=== PATIENT | female | born 1935 | race Caucasian/White ===

== ENCOUNTER 2018-06-12 05:31 | Inpatient (IN) ==
[2018-06-07 13:33] LABS: Apearance,Urine CLEAR (Clear); Bilirubin,Urine Negative (Negative); Blood, Urine Negative (Negative); Glucose,Urine (UA) Negative (Negative); Ketones,Urine Negative (Negative); Nitrite,Urine Negative (Negative); Protein,Urine Negative; RBC,Urine <1 /HPF (0-4); Squamous Epithelial Cell,Urine Occasional /HPF (0-10); Urine Color Straw (Yellow); Urine Specific Gravity 1.008 (1.001-1.035); Urine Urobilinogen < 2.0 EU/DL (0.2-1.0); WBC,Urine 3 /HPF (0-6)
[2018-06-07 13:38] LABS: INR 0.9; PT Patient Result 9.8 SECS; Partial Thromboplastin Time 25.4 SECS (0-40)
[2018-06-12] MEDS ORDERED: VANCOMYCIN INJ 1,000 MG in SODIUM CHLORIDE 0.9% 250 ML IV ONE (06:00)
[2018-06-12] MEDS ORDERED: ceFAZolin 1,000 MG in SYRINGE 1 EACH IV ONE (06:00)
[2018-06-12 07:26] LABS: Basophils % 0.7 % (0.0-0.8); Eosinophils # 0.1 10*3/uL (0.0-0.87); Eosinophils % 0.9 % (0.00-10.9); Hematocrit 37.3 VOL% (35.7-47.0); Hemoglobin 12.2 GM/DL (12.0-16.0); Immature Granulocytes % 0.2 %; Immature Granulocytes Absolute 0.01 #; Lymphocytes # 1.3 10*3/uL (1.4-4.0); Lymphocytes % 21.6 % (21.3-54.2); Mean Corpuscular HGB Conc 32.7 GM/DL (32-36); Mean Corpuscular Hemoglobin 29 PG (27-34); Mean Corpuscular Volume 89.9 FL (87-102); Mean Platelet Volume 11.5 FL (9.6-12.0); Monocytes # 0.7 10*3/uL (0.11-0.8); Monocytes % 11.2 % (1.7-12.7); Neutrophils # 3.9 10*3/uL (1.4-7.4); Neutrophils % 65.4 % (38.7-73.9); Platelet Count 225 T/CUMM (130-400); Red Blood Count 4.15 MC/CUMM (3.8-5.5); Red Cell Distribution Width 13.9 % (9.3-17.3); White Blood Count 5.9 T/CUMM (4-12)
[2018-06-12 07:44] LABS: Albumin 3.4 G/DL (3.4-5.0); Bilirubin,Total 0.4 MG/DL (0.2-1.0); Calcium 9.3 MG/DL (8.5-10.1); Osmolality,Calculated 279.7 MOS/KG (273-304); Total Protein 7.1 G/DL (6.4-8.3)
[2018-06-12] MEDS ORDERED: FAMOTIDINE 20 MG TABLET PO ONE (07:56)
[2018-06-12] MEDS ORDERED: GABAPENTIN 400 MG CAPSULE PO ONE (07:56)
[2018-06-12] MEDS ORDERED: DIAZEPAM 5 MG TABLET PO ONE (07:56)
[2018-06-12] MEDS ORDERED: DIAZEPAM 5 MG TABLET ONE (08:00)
[2018-06-12] MEDS ORDERED: LACTATED RINGERS 1,000 ML IV SCH (08:00)
[2018-06-12] MEDS ORDERED: GABAPENTIN 400 MG CAPSULE ONE (08:00)
[2018-06-12] MEDS ORDERED: FAMOTIDINE 20 MG TABLET ONE (08:01)
[2018-06-12] MEDS ORDERED: VANCOMYCIN 1,000 MG VIAL ONE (08:02)
[2018-06-12] MEDS ORDERED: ceFAZolin 1,000 MG VIAL ONE (08:02)
[2018-06-12] MEDS ORDERED: DEXTROSE 50% 25 GM/50 ML VIAL IV PRN (11:10)
[2018-06-12] MEDS ORDERED: GLUCAGON 1 MG VIAL IM PRN (11:10)
[2018-06-12] MEDS ORDERED: diphenhydrAMINE CAP 25 MG CAPSULE PO PRN (11:11)
[2018-06-12] MEDS ORDERED: MORPHINE 4 MG/1 ML VIAL IV PRN ×2 (11:11)
[2018-06-12] MEDS ORDERED: MAGNESIUM HYDROXIDE SUSP 30 ML UDCUP PO PRN (11:11)
[2018-06-12] MEDS ORDERED: ONDANSETRON 4 MG/2 ML VIAL IV PRN (11:11)
[2018-06-12] MEDS ORDERED: oxyCODONE IR 5 MG TABLET PO PRN ×2 (11:11)
[2018-06-12] MEDS ORDERED: TRANEXAMIC ACID 1,000 MG/10 ML VIAL ONE (11:40)
[2018-06-12] MEDS ORDERED: BACITRACIN OINT 0.9 GM PACK TOP ONE (11:46)
[2018-06-12] MEDS ORDERED: ROPIVACAINE 0.5% 30 ML VIAL ONE (12:38)
[2018-06-12] MEDS ORDERED: ACETAMINOPHEN 1,000 MG/100 ML VIAL IV ONE (13:00)
[2018-06-12] MEDS ORDERED: ONDANSETRON 4 MG/2 ML VIAL ONE (13:00)
[2018-06-12] MEDS ORDERED: ePHEDrine 50 MG/ML AMP ONE (13:00)
[2018-06-12] MEDS ORDERED: PROPOFOL 200 MG/20 ML VIAL IV ONE (13:00)
[2018-06-12] MEDS ORDERED: KETOROLAC 30 MG/1 ML VIAL ONE (13:00)
[2018-06-12] MEDS ORDERED: SODIUM CHLORIDE 0.9% 100 ML IV ONE (13:01)
[2018-06-12] MEDS ORDERED: PHENYLEPHRINE 1 MG/10 ML SYRINGE IV ONE (13:01)
[2018-06-12] MEDS ORDERED: SODIUM CHLORIDE 0.9% 250 ML IV ONE (13:01)
[2018-06-12] MEDS: INSULIN LISPRO 100 UNIT/ML SUBCUT SCH ×3 (14:56→20:48)
[2018-06-12] MEDS: KETOROLAC 15 MG/1 ML VIAL IV SCH ×2 (15:50→22:45)
[2018-06-12] MEDS: LACTATED RINGERS 1,000 ML IV SCH ×2 (15:50→21:31)
[2018-06-12] MEDS: ACETAMINOPHEN 500 MG TABLET PO SCH ×2 (15:50→20:47)
[2018-06-12] MEDS: ceFAZolin 1,000 MG in SYRINGE 1 EACH IV SCH (20:40)
[2018-06-12] MEDS: DOCUSATE SODIUM 100 MG CAPSULE PO SCH (20:44)
[2018-06-12] MEDS: OXYBUTYNIN 5 MG TABLET PO SCH (20:45)
[2018-06-12] MEDS: diphenhydrAMINE CAP 25 MG CAPSULE PO SCH (20:46)
[2018-06-12] MEDS: ESCITALOPRAM 10 MG TABLET PO SCH (20:46)
[2018-06-12] MEDS: MELATONIN 3 MG TABLET PO SCH (20:47)
[2018-06-12] MEDS: ATORVASTATIN 40 MG TABLET PO SCH (20:47)
[2018-06-12] MEDS: CARVEDILOL 3.125 MG TABLET PO SCH (20:48)
[2018-06-12] MEDS: metFORMIN 500 MG TABLET PO SCH (20:48)
[2018-06-12] MEDS ORDERED: CALCIUM PO SCH (21:00)
[2018-06-12] MEDS ORDERED: SOY PO SCH (21:00)
[2018-06-12] MEDS ORDERED: MELATONIN PO SCH (21:00)
[2018-06-12] MEDS ORDERED: [UNRECOGNIZED DRUG - OTHER] PO SCH (21:00)
[2018-06-12] MEDS ORDERED: ATORVASTATIN 10 MG TABLET PO SCH (21:00)
[2018-06-13] MEDS: ACETAMINOPHEN 500 MG TABLET PO SCH ×2 (03:47→09:47)
[2018-06-13] MEDS: ceFAZolin 1,000 MG in SYRINGE 1 EACH IV SCH (03:48)
[2018-06-13] MEDS: KETOROLAC 15 MG/1 ML VIAL IV SCH ×2 (03:51→09:48)
[2018-06-13 05:23] LABS: Basophils % 0.6 % (0.0-0.8); Eosinophils # 0.1 10*3/uL (0.0-0.87); Eosinophils % 1.6 % (0.00-10.9); Hematocrit 31.1 VOL% (35.7-47.0); Immature Granulocytes % 0.2 %; Immature Granulocytes Absolute 0.01 #; Lymphocytes % 21.1 % (21.3-54.2); Mean Corpuscular HGB Conc 32.5 GM/DL (32-36); Mean Corpuscular Hemoglobin 29 PG (27-34); Mean Corpuscular Volume 89.9 FL (87-102); Mean Platelet Volume 12.2 FL (9.6-12.0); Monocytes # 0.6 10*3/uL (0.11-0.8); Monocytes % 12.2 % (1.7-12.7); Neutrophils # 3.2 10*3/uL (1.4-7.4); Neutrophils % 64.3 % (38.7-73.9); Platelet Count 192 T/CUMM (130-400); Red Blood Count 3.46 MC/CUMM (3.8-5.5); Red Cell Distribution Width 13.9 % (9.3-17.3); White Blood Count 4.9 T/CUMM (4-12)
[2018-06-13 05:39] LABS: Calcium 8.5 MG/DL (8.5-10.1); Osmolality,Calculated 275.8 MOS/KG (273-304)
[2018-06-13] MEDS: FONDAPARINUX 2.5 MG/0.5 ML SYRINGE SUBCUT SCH (05:44)
[2018-06-13 05:50] LABS: Hemoglobin 10.1 GM/DL (12.0-16.0)
[2018-06-13] MEDS: INSULIN LISPRO 100 UNIT/ML SUBCUT SCH ×4 (08:13→23:04)
[2018-06-13] MEDS: INSULIN REGULAR 100 UNIT/ML SUBCUT SCH (08:15)
[2018-06-13] MEDS ORDERED: GLUCAGON 1 MG VIAL IM PRN (08:36)
[2018-06-13] MEDS ORDERED: DEXTROSE 50% 25 GM/50 ML VIAL IV PRN (08:36)
[2018-06-13] MEDS ORDERED: BIOFLAVONOID PO SCH (09:00)
[2018-06-13] MEDS ORDERED: Cyanocobalamin (Vitamin B-12) [Vitamin B-12] 5,000 MCG PO SCH (09:00)
[2018-06-13] MEDS ORDERED: LOSARTAN 50 MG TABLET PO SCH (09:00)
[2018-06-13] MEDS ORDERED: ASCORBATE CALCIUM PO SCH (09:00)
[2018-06-13] MEDS: OLMESARTAN 20 MG TABLET PO SCH (09:44)
[2018-06-13] MEDS: CARVEDILOL 3.125 MG TABLET PO SCH ×2 (09:44→21:18)
[2018-06-13] MEDS: OXYBUTYNIN 5 MG TABLET PO SCH ×2 (09:44→21:18)
[2018-06-13] MEDS: metFORMIN 500 MG TABLET PO SCH ×2 (09:44→21:18)
[2018-06-13] MEDS: amLODIPine 2.5 MG TABLET PO SCH (09:44)
[2018-06-13] MEDS: hydroCHLOROthiazide 25 MG TABLET PO SCH (09:45)
[2018-06-13] MEDS: PANTOPRAZOLE 40 MG TABLET PO SCH (09:45)
[2018-06-13] MEDS: DOCUSATE SODIUM 100 MG CAPSULE PO SCH ×2 (09:45→21:18)
[2018-06-13] MEDS: PIOGLITAZONE 15 MG TABLET PO SCH (09:45)
[2018-06-13] MEDS: CHOLECALCIFEROL 5,000 UNIT TABLET PO SCH (09:45)
[2018-06-13] MEDS ORDERED: KETOROLAC 30 MG/1 ML VIAL ONE (09:47)
[2018-06-13] MEDS: LACTATED RINGERS 1,000 ML IV SCH (12:26)
[2018-06-13] MEDS: CELECOXIB 200 MG CAPSULE PO SCH (17:07)
[2018-06-13] MEDS: ESCITALOPRAM 10 MG TABLET PO SCH (21:18)
[2018-06-13] MEDS: ATORVASTATIN 40 MG TABLET PO SCH (21:18)
[2018-06-13] MEDS: diphenhydrAMINE CAP 25 MG CAPSULE PO SCH (21:18)
[2018-06-13] MEDS: MELATONIN 3 MG TABLET PO SCH (21:18)
[2018-06-14] MEDS: FONDAPARINUX 2.5 MG/0.5 ML SYRINGE SUBCUT SCH (05:28)
[2018-06-14 05:36] LABS: Basophils % 0.2 % (0.0-0.8); Eosinophils # 0.1 10*3/uL (0.0-0.87); Eosinophils % 1.8 % (0.00-10.9); Hematocrit 30.6 VOL% (35.7-47.0); Hemoglobin 9.7 GM/DL (12.0-16.0); Immature Granulocytes % 0.2 %; Immature Granulocytes Absolute 0.01 #; Lymphocytes # 1.3 10*3/uL (1.4-4.0); Lymphocytes % 23.7 % (21.3-54.2); Mean Corpuscular HGB Conc 31.7 GM/DL (32-36); Mean Corpuscular Hemoglobin 29 PG (27-34); Mean Platelet Volume 12.4 FL (9.6-12.0); Monocytes # 0.7 10*3/uL (0.11-0.8); Monocytes % 12.5 % (1.7-12.7); Neutrophils # 3.4 10*3/uL (1.4-7.4); Neutrophils % 61.6 % (38.7-73.9); Platelet Count 191 T/CUMM (130-400); Red Cell Distribution Width 13.9 % (9.3-17.3); White Blood Count 5.6 T/CUMM (4-12)
[2018-06-14] MEDS: INSULIN LISPRO 100 UNIT/ML SUBCUT SCH ×4 (08:04→21:20)
[2018-06-14] MEDS: PANTOPRAZOLE 40 MG TABLET PO SCH (09:06)
[2018-06-14] MEDS: PIOGLITAZONE 15 MG TABLET PO SCH (09:06)
[2018-06-14] MEDS: CHOLECALCIFEROL 5,000 UNIT TABLET PO SCH (09:06)
[2018-06-14] MEDS: metFORMIN 500 MG TABLET PO SCH ×2 (09:06→21:18)
[2018-06-14] MEDS: hydroCHLOROthiazide 25 MG TABLET PO SCH (09:06)
[2018-06-14] MEDS: OXYBUTYNIN 5 MG TABLET PO SCH ×2 (09:06→21:19)
[2018-06-14] MEDS: OLMESARTAN 20 MG TABLET PO SCH (09:06)
[2018-06-14] MEDS: CELECOXIB 200 MG CAPSULE PO SCH (09:07)
[2018-06-14] MEDS: amLODIPine 2.5 MG TABLET PO SCH (09:07)
[2018-06-14] MEDS: INSULIN REGULAR 100 UNIT/ML SUBCUT SCH (09:07)
[2018-06-14] MEDS: CARVEDILOL 3.125 MG TABLET PO SCH ×2 (09:07→21:19)
[2018-06-14] MEDS: DOCUSATE SODIUM 100 MG CAPSULE PO SCH ×2 (09:07→21:18)
[2018-06-14] MEDS: diphenhydrAMINE CAP 25 MG CAPSULE PO SCH (21:18)
[2018-06-14] MEDS: ATORVASTATIN 40 MG TABLET PO SCH (21:19)
[2018-06-14] MEDS: ESCITALOPRAM 10 MG TABLET PO SCH (21:19)
[2018-06-14] MEDS: MELATONIN 3 MG TABLET PO SCH (21:28)
[2018-06-15] MEDS: FONDAPARINUX 2.5 MG/0.5 ML SYRINGE SUBCUT SCH (05:16)
[2018-06-15 05:52] LABS: Basophils % 0.5 % (0.0-0.8); Eosinophils # 0.1 10*3/uL (0.0-0.87); Hemoglobin 10.3 GM/DL (12.0-16.0); Immature Granulocytes % 0.2 %; Immature Granulocytes Absolute 0.01 #; Lymphocytes # 1.3 10*3/uL (1.4-4.0); Lymphocytes % 20.3 % (21.3-54.2); Mean Corpuscular HGB Conc 32.2 GM/DL (32-36); Mean Corpuscular Hemoglobin 29 PG (27-34); Mean Corpuscular Volume 89.9 FL (87-102); Mean Platelet Volume 12.4 FL (9.6-12.0); Monocytes # 0.7 10*3/uL (0.11-0.8); Monocytes % 10.9 % (1.7-12.7); Neutrophils # 4.3 10*3/uL (1.4-7.4); Neutrophils % 66.1 % (38.7-73.9); Platelet Count 226 T/CUMM (130-400); Red Blood Count 3.56 MC/CUMM (3.8-5.5); Red Cell Distribution Width 13.7 % (9.3-17.3); White Blood Count 6.5 T/CUMM (4-12)
[2018-06-15] MEDS: PANTOPRAZOLE 40 MG TABLET PO SCH (09:22)
[2018-06-15] MEDS: hydroCHLOROthiazide 25 MG TABLET PO SCH (09:22)
[2018-06-15] MEDS: CHOLECALCIFEROL 5,000 UNIT TABLET PO SCH (09:22)
[2018-06-15] MEDS: CELECOXIB 200 MG CAPSULE PO SCH (09:22)
[2018-06-15] MEDS: amLODIPine 2.5 MG TABLET PO SCH (09:22)
[2018-06-15] MEDS: OLMESARTAN 20 MG TABLET PO SCH (09:22)
[2018-06-15] MEDS: DOCUSATE SODIUM 100 MG CAPSULE PO SCH (09:22)
[2018-06-15] MEDS: metFORMIN 500 MG TABLET PO SCH (09:22)
[2018-06-15] MEDS: PIOGLITAZONE 15 MG TABLET PO SCH (09:22)
[2018-06-15] MEDS: CARVEDILOL 3.125 MG TABLET PO SCH (09:23)
[2018-06-15] MEDS: OXYBUTYNIN 5 MG TABLET PO SCH (09:23)
[2018-06-15] MEDS: INSULIN LISPRO 100 UNIT/ML SUBCUT SCH ×2 (09:25→11:54)
[2018-06-15] MEDS: INSULIN REGULAR 100 UNIT/ML SUBCUT SCH (09:25)
[2018-06-15] MEDS ORDERED: BISACODYL 10 MG SUPP RECTAL ONE (10:39)
[2018-06-15 11:53] VITALS: BP 165/68
== END 2018-06-15 13:35 | disposition home or self-care (01) | DRG 470 ==
LOC: N.OR 05:31 → N.SDSINP 05:33 → N.3E 11:11
PROVIDERS: ADMIT Orthopaedic Surgery; ATTEND Orthopaedic Surgery